=== PATIENT | male | born 1980 | race Caucasian/White ===

== ENCOUNTER 2021-01-05 01:25 | Emergency (ER) | payer SELFPAY ==
[~2021-01-05] VITALS: Ht 167.6 cm; Wt 61.7 kg
[2021-01-05 01:25] VITALS: BP 128/71
--- NOTE | 2021-01-05 01:25 | NUR ---
PT MIKAYLA HEWITT, PREBOOK. TAKEN TO CHAIR
--- NOTE | 2021-01-05 01:43 | NUR ---
PATIENT [facility] POLICE DEPT. PATIENT EXAMINED BY DR. VILLANUEVA. PATIENT MEDICALLY CLEARED AND RELEASED IN CUSTODY IN STABLE CONDITION. ORIGINAL PRE-BOOK FORM GIVEN TO OFFICER JERRI, #[id number].
== END 2021-01-05 01:43 ==
LOC: MED 01:25
DX: Z02.89 Encounter for other administrative examinations (principal); Y04.0XXA Assault by unarmed brawl or fight, initial encounter; Y93.89 Activity, other specified; Y92.89 Other specified places as the place of occurrence of the external cause; Y99.8 Other external cause status
CPT/HCPCS: 99283

== ENCOUNTER 2023-03-31 11:34 | Emergency (ER) | payer SELFPAY ==
[~2023-03-31] VITALS: Ht 177.8 cm; Wt 64.9 kg
[2023-03-31 11:45] VITALS: BP 123/83; PULSE 104; RESP 16; TEMP 98.1; O2SAT 98
[2023-03-31] MEDS ORDERED: KETOROLAC 30 MG/ML VIAL ONE (13:12)
[2023-03-31] MEDS: KETOROLAC 30 MG/ML VIAL IM ONE (13:17)
[2023-03-31] MEDS ORDERED: IBUP-2213 PO (14:27)
[2023-03-31] MEDS ORDERED: CYCL-711 PO (14:27)
== END 2023-03-31 15:17 | disposition home or self-care (01) ==
LOC: MED 11:34
DX: S86.212A Strain of muscle(s) and tendon(s) of anterior muscle group at lower leg level, left leg, initial encounter (principal); V49.88XA Car occupant (driver) (passenger) injured in other specified transport accidents, initial encounter; Y93.89 Activity, other specified; Y92.89 Other specified places as the place of occurrence of the external cause; Y99.8 Other external cause status
CPT/HCPCS: 29505; 73552; 73590; 96372; 99284; J1885; 29515